=== PATIENT | male | born 1960 | race Caucasian/White ===

== ENCOUNTER → 2018-11-25 09:40 | Outpatient (CLI) | payer BC, SELFPAY ==
[2018-11-25 12:47] LABS: Anion Gap 7 (5-15); BUN 11 mg/dL (7-18); Calcium,Total 8.8 mg/dL (8.5-10.1); Chloride 106 mmol/L (98-107); Cholesterol 204 mg/dL (200); Creatinine, Serum 0.85 mg/dL (0.70-1.30); EST Glomerular Filtration Rate 98 mL/min (>60); Est Glom Filt Rate - Afr Amer 118 mL/min (>60); Glucose 92 mg/dL (74-106); High Density Lipoprotein 100 mg/dL; Potassium 4.3 mmol/L (3.5-5.1); Sodium Level 142 mmol/L (136-145); Triglycerides 100 mg/dL; Very Low Density Lipoprotein 20 mg/dL (5-40)
== END ==
PROVIDERS: Family Provider Family Medicine; PCP Family Medicine; Visit Provider Family Medicine
DX: I10 Essential (primary) hypertension (principal)
CPT/HCPCS: 36415; 80048; 80061

== ENCOUNTER 2018-12-22 15:59 | Emergency (ER) | payer BC, SELFPAY ==
[2018-12-22 16:00] VITALS: BP 163/104; PULSE 88; RESP 17; TEMP 36.6; O2SAT 99; BMI 25.4
--- NOTE | 2018-12-22 16:02 | ED.RN ---
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
--- NOTE | 2018-12-22 16:36 | CT_ITS ---
STUDY: CT BRAIN WITHOUT CONTRAST REASON FOR EXAM: Male, 58 years old. Fell on ice. No loss of consciousness. Neck pain. Head pain. RADIATION DOSAGE (If Supplied By Facility): CTDIvol = ( 44.99 ) mGy, DLP = ( 779.24 ) mGycm TECHNIQUE: Transaxial CT imaging of the brain was performed without administration of intravenous contrast material. Individualized dose optimization techniques were used for this CT. COMPARISON: None. FINDINGS: Normal soft tissue structures. Normal calvarium. Normal size ventricles and extra-axial spaces for the patient's age. Normal white matter tracts of the cerebral hemispheres. Normal basal ganglia and thalami. Normal brainstem. Normal cerebellum. There is no intracranial hemorrhage. There are no findings of an acute ischemic infarction. Normal visualized paranasal sinuses. CT/Brain/Head without Contrast IMPRESSION: Normal unenhanced CT scan of the brain. Electronically Signed: Mj Lawler DO at 17:24 EST Tel [phone], Service support ,
--- NOTE | 2018-12-22 16:36 | CT_ITS ---
STUDY: CT CERVICAL SPINE WITHOUT CONTRAST REASON FOR EXAM: Male, 58 years old. Fell on ice. Neck pain. No loss of consciousness. RADIATION DOSAGE (If Supplied By Facility): CTDIvol = ( 24.88 ) mGy, DLP = ( 520.45 ) mGycm TECHNIQUE: High resolution transaxial imaging was performed without contrast material. Sagittal and coronal images were reconstructed. Individualized dose optimization techniques were used for this CT. COMPARISON: None FINDINGS: Normal craniovertebral junction. There are degenerative changes of the anterior atlantoaxial articulation. Normal odontoid process. Normal cervical lordosis. Normal vertebral bodies and posterior osseous elements. C2-3: Normal endplates. Normal disc height and morphology. Normal central canal and intervertebral neuroforamina. C3-4: There is loss of disc height with minimal endplate spondylosis. There is facet and vertebral joint degenerative change. Normal central canal. There is mild narrowing on the right intervertebral neuroforamen. C4-5: There is minimal endplate spondylosis with loss of disc height. There is a Schmorl's node in the inferior endplate of C4. There is facet and uncovertebral joint degenerative change. Normal central canal and intervertebral neuroforamina. C5-6: There is loss of disc height with minimal endplate spondylosis. There is facet and uncovertebral joint degenerative change Normal central canal. There is narrowing of the right intervertebral neuroforamen. C6-7: Normal endplates. There is loss of disc height. There is facet and uncovertebral joint degenerative change. Normal central canal and intervertebral neuroforamina. C7-T1: Normal endplates. Normal disc height and morphology. Normal central canal and intervertebral neuroforamina. Normal visualized soft tissue structures. CT/Spine Cervical without Contras IMPRESSION: Degenerative changes in cervical spine, as above. There is no acute fracture or subluxation. Electronically Signed: Mj Lawler DO at 17:49 EST Tel [phone], Service support ,
--- NOTE | 2018-12-22 16:36 | RAD_ITS ---
STUDY: X-RAY - THORACIC SPINE REASON FOR EXAM: Male, 58 years old. Pain after fall. TECHNIQUE: 3 view(s) of the thoracic spine were obtained. COMPARISON: Lumbar spine, December 22, 2018. Cervical spine, December 22, 2018. FINDINGS: Normal kyphosis of the thoracic spine. There is a mild dextroscoliosis at the convexity at T6-7. There is multilevel endplate spondylosis of the thoracic vertebrae. There is multilevel disc space narrowing of the thoracic spine. This is most marked in the mid thoracic spine. There is no evidence of acute fracture or loss of vertebral axial height. The soft tissue structures are unremarkable. RAD/Thoracic Spine 3 Views IMPRESSION: Degenerative changes of the thoracic spine without fracture or subluxation. Electronically Signed: Mj Lawler DO at 17:37 EST Tel [phone], Service support ,
--- NOTE | 2018-12-22 16:39 | ED.DCSUM_ITS ---
- ER Visit Summary Date of Service: 12/22/18 Chief Complaint: Fall History of Present Illness: The patient is a 58 M who presents after a fall today. Patient states he slipped on ice and fell backwards onto his back. Patient states the pain is worse over the upper thoracic area. Patient states he did hit his head but denies any loss of consciousness. Patient also admits to some left paraspinal cervical tenderness. Patient denies any paresthesias or weakness. Patient states the pain is worse with any movement. Patient describes pain as sharp. Patient does admit to a mild headache. Physical Examination: Vital signs are stable. Patient is afebrile. Patient is in no acute distress. Muscular skeletal exam reveals tenderness over the upper thoracic spine and paraspinal muscles. There is also tenderness over the left cervical paraspinal muscles. There is also some mild occipital tenderness. There is no bony crepitance or step-off. Range of motion was limited all motions of the cervical spine and thoracic spine secondary to pain. Strength is 5/5 bilaterally in the upper and lower extremities. There are no sensory deficits noted. Cranial nerves II through XII are intact. Heart was regular rate and rhythm. Lungs are clear and equal bilaterally. The remaining physical exam is within normal limits. Test Results: CT scan of the brain was obtained and did not show any acute intracranial abnormality. CT scan of the cervical spine was obtained. There is no acute fracture or subluxation noted. X-rays of the thoracic and lumbar spine were obtained. There are no acute fractures or subluxation. Emergency Department Course and Treatment: Patient was advised that this is most likely muscular strain. Patient was given head injury instructions. Patient was instructed to use ice to the areas. Patient was given prescriptions for Naprosyn and Flexeril. Patient was instructed to follow-up with his primary care physician in 5-7 days. Patient understood and was agreeable with the plan. All questions were answered. Disposition: Discharge home Impression: 1. Acute thoracic strain 2. Acute cervical strain 3. Closed head injury This note was generated with [employer] dictation software. It may contain incorrect words, spelling, and punctuation that were not noted in review of the chart prior to signing ED Disposition - Plan for ED Patient: Disposition: Home or Assisted Living Chief Complaint: Fall Diagnosis: Closed head injury, Acute cervical myofascial strain, Acute thoracic myofascial strain Instructions: ED Mechanical Fall, ED Head Injury Closed, ED Neck Back Pain General Prescriptions: Cyclobenzaprine [Flexeril] 10 mg PO QHS PRN PRN #10 tab PRN Reason: Muscle Spasm Naproxen [Naprosyn] 500 mg PO BID PRN #20 tab Referrals: Ronaldo Choe MD [Primary Care Provider] -
[2018-12-22] MEDS: Morphine 4 MG/ML Syringe IM (16:47)
--- NOTE | 2018-12-22 17:00 | RAD_ITS ---
STUDY: X-RAY - LUMBAR SPINE REASON FOR EXAM: Male, 58 years old. Lower back pain after fall. TECHNIQUE: 3 view(s) of the lumbar spine were obtained. COMPARISON: None FINDINGS: Normal lumbar lordosis. There is no substantial scoliosis. There is a normal alignment of the vertebrae. There is multilevel endplate spondylosis of the lumbar vertebrae. There is multi-level degenerative disc disease with multi-level disc space narrowing. There is no evidence of acute fracture or loss of vertebral axial height. There is atherosclerotic calcification of the abdominal aorta without a demonstrated aneurysm. RAD/Lumbar Spine 2 or 3 Views IMPRESSION: Degenerative changes of the lumbar spine without evidence of fracture or subluxation. Electronically Signed: Mj Lawler DO at 17:36 EST Tel [phone], Service support ,
[2018-12-22 18:20] VITALS: BP 156/103; PULSE 69; RESP 16; O2SAT 100
[2018-12-22] MEDS: Naproxen 250 MG Tablet 500 MG PO (18:44)
--- OUTSIDE RECORDS SUMMARY | 2019-02-23 23:18 | XMS RPT_ITS ---
:1960 Author Organization [facility] Care Team Providers Name Role Phone Yon Choe Attending Unavailable Yon Choe Primary Care Unavailable Yon Choe Primary Care Unavailable Gerardo Chaudhary Unavailable PROBLEMS PROBLEMS No Problem Records FoundPROCEDURES PROCEDURES No Procedure Records FoundRESULTS RESULTS EMERGENCY DEPARTMENT Observed: 12/22/2018 Status: F Source: [place] SUMMARY 6:33 PM [facility] [place], [place] REPOSITORY [facility] Medical Records Department [address] [place] [address] Emergency Department Summary 12/22/18 1637 MR#: [id number] Acct: [id number] Name: GONSALO HA Rep #: [id number] : 1960 58 From: Gerardo Chaudhary DO PCP: Yon Choe MD Status: REG ER - ER Visit Summary Date of Service: 12/22/18 Chief Complaint: Fall History of Present Illness: The patient is a 58 M who presents after a fall today. Patient states he slipped on ice and fell backwards onto his back. Patient states the pain is worse over the upper thoracic area. Patient states he did hit his head but denies any loss of consciousness. Patient also admits to some left paraspinal cervical tenderness. Patient denies any paresthesias or weakness. Patient states the pain is worse with any movement. Patient describes pain as sharp. Patient does admit to a mild headache. Physical Examination: Vital signs are stable. Patient is afebrile. Patient is in no acute distress. Muscular skeletal exam reveals tenderness over the upper thoracic spine and paraspinal muscles. There is also tenderness over the left cervical paraspinal muscles. There is also some mild occipital tenderness. There is no bony crepitance or step-off. Range of motion was limited all motions of the cervical spine and thoracic spine secondary to pain. Strength is 5/5 bilaterally in the upper and lower extremities. There are no sensory deficits noted. Cranial nerves II through XII are intact. Heart was regular rate and rhythm. Lungs are clear and equal bilaterally. The remaining physical exam is within normal limits. Test Results: CT scan of the brain was obtained and did not show any acute intracranial abnormality. CT scan of the cervical spine was obtained. There is no acute fracture or subluxation noted. X-rays of the thoracic and lumbar spine were obtained. There are no acute fractures or subluxation. Emergency Department Course and Treatment: Patient was advised that this is most likely muscular strain. Patient was given head injury instructions. Patient was instructed to use ice to the areas. Patient was given prescriptions for Naprosyn and Flexeril. Patient was instructed to follow-up with his primary care physician in 5-7 days. Patient understood and was agreeable with the plan. All questions were answered. Disposition: Discharge home Impression: 1. Acute thoracic strain 2. Acute cervical strain 3. Closed head injury This note was generated with [employer] dictation software. It may contain incorrect words, spelling, and punctuation that were not noted in review of the chart prior to signing ED Disposition - Plan for ED Patient: Disposition: Home or Assisted Living Chief Complaint: Fall Diagnosis: Closed head injury, Acute cervical myofascial strain, Acute thoracic myofascial strain Instructions: ED Mechanical Fall, ED Head Injury Closed, ED Neck Back Pain General Prescriptions: Cyclobenzaprine [Flexeril] 10 mg PO QHS PRN PRN #10 tab PRN Reason: Muscle Spasm Naproxen [Naprosyn] 500 mg PO BID PRN #20 tab Referrals: Ronaldo Choe MD [Primary Care Provider] - What to do if you have Problems For any increased pain, shortness of breath, bleeding, nausea or vomiting, chest pain, or any unexpected problems, contact your Primary Care Provider. Call [facility] ([phone]) or report to the closest Emergency Room. Call 911 if necessary. 12/22/18 0339 <Electronically signed by Gerardo Chaudhary DO> Date Gerardo Grossman Signature (If Indicated): Date CC: Yon Choe MD BRAIN/HEAD WITHOUT Observed: 12/22/2018 Status: F Source: [place] CONTRAST 4:37 PM [facility] [place], [place] REPOSITORY [facility] Imaging Services [address] [place] [address] Brain/Head without Contrast MR#: [id number] Acct: [id number] Name: GONSALO HA Rep #: [id number] : 1960 M 58 From: Mj Lawler DO PCP: Yon Choe MD Status: REG ER Study: Brain/Head without Contrast Date of Exam: 12/22/18 Exam# [id number] Ordering Dr: Gerardo Chaudhary DO STUDY: CT BRAIN WITHOUT CONTRAST REASON FOR EXAM: Male, 58 years old. Fell on ice. No loss of consciousness. Neck pain. Head pain. RADIATION DOSAGE (If Supplied By Facility): CTDIvol = ( 44.99 ) mGy, DLP = ( 779.24 ) mGycm TECHNIQUE: Transaxial CT imaging of the brain was performed without administration of intravenous contrast material. Individualized dose optimization techniques were used for this CT. COMPARISON: None. FINDINGS: Normal soft tissue structures. Normal calvarium. Normal size ventricles and extra-axial spaces for the patient's age. Normal white matter tracts of the cerebral hemispheres. Normal basal ganglia and thalami. Normal brainstem. Normal cerebellum. There is no intracranial hemorrhage. There are no findings of an acute ischemic infarction. Normal visualized paranasal sinuses. CT/Brain/Head without Contrast IMPRESSION: Normal unenhanced CT scan of the brain. Electronically Signed: Mj Lawler DO at 17:24 EST Tel [phone], Service support , CC: Yon Choe MD; Gerardo Chaudhary DO Rod Cup Filler: Signed LUMBAR SPINE 2 OR 3 Observed: 12/22/2018 Status: F Source: [place] VIEWS 4:37 PM [facility] [place] [place] REPOSITORY [facility] Imaging Services [address] [place] [address] Lumbar Spine 2 or 3 Views MR#: [id number] Acct: [id number] Name: GONSALO HA Rep #: [id number] : 1960 M 58 From: Mj Lawler DO PCP: Yon Choe MD Status: REG ER Study: Lumbar Spine 2 or 3 Views Date of Exam: 12/22/18 Exam# [id number] Ordering Dr: Gerardo Chaudhary DO STUDY: X-RAY - LUMBAR SPINE REASON FOR EXAM: Male, 58 years old. Lower back pain after fall. TECHNIQUE: 3 view(s) of the lumbar spine were obtained. COMPARISON: None FINDINGS: Normal lumbar lordosis. There is no substantial scoliosis. There is a normal alignment of the vertebrae. There is multilevel endplate spondylosis of the lumbar vertebrae. There is multi-level degenerative disc disease with multi-level disc space narrowing. There is no evidence of acute fracture or loss of vertebral axial height. There is atherosclerotic calcification of the abdominal aorta without a demonstrated aneurysm. RAD/Lumbar Spine 2 or 3 Views IMPRESSION: Degenerative changes of the lumbar spine without evidence of fracture or subluxation. Electronically Signed: Mj Lawler DO at 17:36 EST Tel [phone], Service support , CC: Yon Choe MD; Gerardo Chaudhary DO Rod Cup Filler: Signed THORACIC SPINE 3 Observed: 12/22/2018 Status: F Source: [place] VIEWS 4:37 PM [facility] REPOSITORY [facility] Imaging Services [address] [place] [address] Thoracic Spine 3 Views MR#: [id number] Acct: [id number] Name: GONSALO HA Rep #: [id number] : 1960 M 58 From: Mj Lawler DO PCP: Yon Choe MD Status: REG ER Study: Thoracic Spine 3 Views Date of Exam: 12/22/18 Exam# [id number] Ordering Dr: Gerardo Chaudhary DO STUDY: X-RAY - THORACIC SPINE REASON FOR EXAM: Male, 58 years old. Pain after fall. TECHNIQUE: 3 view(s) of the thoracic spine were obtained. COMPARISON: Lumbar spine, December 22, 2018. Cervical spine, December 22, 2018. FINDINGS: Normal kyphosis of the thoracic spine. There is a mild dextroscoliosis at the convexity at T6-7. There is multilevel endplate spondylosis of the thoracic vertebrae. There is multilevel disc space narrowing of the thoracic spine. This is most marked in the mid thoracic spine. There is no evidence of acute fracture or loss of vertebral axial height. The soft tissue structures are unremarkable. RAD/Thoracic Spine 3 Views IMPRESSION: Degenerative changes of the thoracic spine without fracture or subluxation. Electronically Signed: Mj Lawler DO at 17:37 EST Tel [phone], Service support , CC: Yon Choe MD; Gerardo Chaudhary DO Rod Cup Filler: Signed SPINE CERVICAL Observed: 12/22/2018 Status: F Source: [place] WITHOUT CONTRAS 4:37 PM [facility] REPOSITORY [facility] Imaging Services [address] [place] [address] Spine Cervical without Contras MR#: [id number] Acct: [id number] Name: GONSALO HA Rep #: [id number] : 1960 M 58 From: Mj Lawler DO PCP: Yon Choe MD Status: REG ER Study: Spine Cervical without Contras Date of Exam: 12/22/18 Exam# [id number] Ordering Dr: Gerardo Chaudhary DO STUDY: CT CERVICAL SPINE WITHOUT CONTRAST REASON FOR EXAM: Male, 58 years old. Fell on ice. Neck pain. No loss of consciousness. RADIATION DOSAGE (If Supplied By Facility): CTDIvol = ( 24.88 ) mGy, DLP = ( 520.45 ) mGycm TECHNIQUE: High resolution transaxial imaging was performed without contrast material. Sagittal and coronal images were reconstructed. Individualized dose optimization techniques were used for this CT. COMPARISON: None FINDINGS: Normal craniovertebral junction. There are degenerative changes of the anterior atlantoaxial articulation. Normal odontoid process. Normal cervical lordosis. Normal vertebral bodies and posterior osseous elements. C2-3: Normal endplates. Normal disc height and morphology. Normal central canal and intervertebral neuroforamina. C3-4: There is loss of disc height with minimal endplate spondylosis. There is facet and vertebral joint degenerative change. Normal central canal. There is mild narrowing on the right intervertebral neuroforamen. C4-5: There is minimal endplate spondylosis with loss of disc height. There is a Schmorl's node in the inferior endplate of C4. There is facet and uncovertebral joint degenerative change. Normal central canal and intervertebral neuroforamina. C5-6: There is loss of disc height with minimal endplate spondylosis. There is facet and uncovertebral joint degenerative change Normal central canal. There is narrowing of the right intervertebral neuroforamen. C6-7: Normal endplates. There is loss of disc height. There is facet and uncovertebral joint degenerative change. Normal central canal and intervertebral neuroforamina. C7-T1: Normal endplates. Normal disc height and morphology. Normal central canal and intervertebral neuroforamina. Normal visualized soft tissue structures. CT/Spine Cervical without Contras IMPRESSION: Degenerative changes in cervical spine, as above. There is no acute fracture or subluxation. Electronically Signed: Mj Lawler DO at 17:49 EST Tel [phone], Service support , CC: Yon Choe MD; Gerardo Chaudhayr DO Rod Cup Filler: Signed BASIC METABOLIC Collected: 11/25/2018 Status: F Source: [place] PROFILE (BMP) 9:40 AM [facility] [place], [place] REPOSITORY TYPE CODE TESTS RESULT OUT OF RANGE REFERENCE UNITS LAB L501.0100 74-106 mg/dL Normal GLU 92 Result Comment: Please note revised GLUCOSE reference range effective 2018. LAB L501.1000 7-18 mg/dL Normal BUN 11 LAB L501.1100 0.70-1.30 mg/dL Normal CREAT,SERUM 0.85 Result Comment: The validity of the calculated GFR AND GFRAA in patients over 70 years has not been determined. Clinical correlation is essential. LAB L501.1110 >60 mL/min Normal EST GFR 98 Result Comment: Non- GFR Calc LAB L501.1115 >60 mL/min Normal EST GFR - AA 118 Result Comment: GFR Calc LAB L501.1300 10-20 RATIO Normal BUN/CRE 13.0 LAB L501.2200 8.5-10.1 mg/dL CA Normal 8.8 LAB L501.5300 136-145 mmol/L NA Normal 142 LAB L501.5600 3.5-5.1 mmol/L K Normal 4.3 LAB L501.5900 98-107 mmol/L CL Normal 106 LAB L501.6100 21.0-32.0 mmol/L Normal CO2 29.0 LAB L501.6200 5-15 Normal GAP 7 Performed By: #### L500.2500, L500.4100 #### [facility] [address] [place], [address] LIPID PROFILE Collected: 11/25/2018 Status: F Source: [place] 9:40 AM [facility] [place] [place] REPOSITORY TYPE CODE TESTS RESULT OUT OF RANGE REFERENCE UNITS LAB L501.4900 200 mg/dL High CHOL 204 Result Comment: <200 mg/dL Desirable 200-240 mg/dL Borderline >240 mg/dL High Risk LAB L501.5000 mg/dL Normal TRIG 100 Result Comment: The drugs N-Acetylcysteine and Metamizole may falsely depress this assay. Serum Triglycerides Reference Interval Normal <150 mg/dL Borderline high 150 - 199 mg/dL High 200 - 499 mg/dL Very High > or = 500 mg/dL LAB L501.6400 mg/dL Normal HDL 100 Result Comment: The drugs N-Acetylcysteine and Metamizole may falsely depress this assay. Reference Range HDL <40 mg/dL Low HDL Cholesterol HDL >or= 60 mg/dL High HDL Cholesterol LAB L501.6500 0-130 mg/dL Normal LDL 84 LAB L501.6600 5-40 mg/dL Normal VLDL 20 Performed By: #### L500.2500, L500.4100 #### [facility] [address] [place], [address] ALLERGIES ALLERGIES DATE TYPE / CODE NAME / CODE REACTION SEVERITY SOURCE 12/22/2018 Drug No Known Unknown [facility] Allergy/4160 Allergies/F00 Hospital 77378(SNOMED [id number](RXNOR Repository CT) M) ENCOUNTERS ENCOUNTERS ADMIT/DISCHARGE ACCOUNT ADMITTING ENCOUNTER LOCATION SOURCE NUMBER CLASS 12/22/2018/ [id number] Emergency [place] 9 5 [facility] ing:ED Repository 11/25/2018 [id number] Ambulatory [place] 0 [facility] ing:MFPLAB Repository PAYERS PAYERS ENCOUNTER GUARANTOR PAYER SUBSCRIBER SOURCE 12/22/2018 GONSALO [id number] Insurance:ANTHEMPolic CURIEDOB: [facility] y [place]: [id number] [id number] Repository [address]Leu: (330) Date:[id number] [phone] () [place], [place] [address]LB: 12/22/2018 Secondary NOT GIVENUNK [place] Insurance:SELF PAY [facility] Number: Effective Repository Date:2018-12-22 11/25/2018 GONSALO Primary Michelle Hogan [place] [id number] Insurance:ANTHEMPolic CurieDOB: [facility] y [place]: [id number] [id number] Repository [address]Wqo: 330) Date:[phone] () [place], [place] [address]IU: 11/25/2018 Secondary NOT GIVENKARLENE [place] Insurance:SELF PAY [facility] Number: Effective Repository Date:2018-11-25
== END 2018-12-22 18:54 | disposition home or self-care (01) ==
PROVIDERS: Emergency Provider Emergency Medicine; Family Provider Family Medicine; PCP Family Medicine
DX: S29.012A Strain of muscle and tendon of back wall of thorax, initial encounter (principal); S16.1XXA Strain of muscle, fascia and tendon at neck level, initial encounter; W00.0XXA Fall on same level due to ice and snow, initial encounter; Y93.9 Activity, unspecified; Y92.9 Unspecified place or not applicable; Y99.9 Unspecified external cause status; I10 Essential (primary) hypertension; F10.20 Alcohol dependence, uncomplicated; Y90.9 Presence of alcohol in blood, level not specified; S09.90XA Unspecified injury of head, initial encounter
CPT/HCPCS: 70450; 72072; 72100; 72125; 99283; J7030; A4216

== ENCOUNTER → 2019-06-11 14:59 | Outpatient (CLI) | payer BC, SELFPAY ==
[2019-06-11 15:36] LABS: Pathologist Comment May follow
[2019-06-11 18:18] LABS: RBC /Synovial Fluid 0.013 10^6/uL (0); Synovial Fld Mononuclear WBC % 9.5 %; Synovial Fld Polynuclear WBC % 90.5 %
[2019-06-11 19:09] LABS: AUTO B FLUID DILUENT BKGD CT WBC <0.1 RBC <0.01 (W<.1,R<.01); Source- Body Fluid SYNOVIAL
[2019-06-11 19:10] LABS: Appearance /Synovial Fluid Cloudy (CLEAR); Color / Synovial Fluid Yellow (Pale Yellow); Source / Synovial Fluid NG
[2019-06-11 19:12] LABS: Monocyte /Synovial Fluid 4 %; Neutrophil 93 % (0-25)
[2019-06-11 19:13] LABS: Body Fluid QC Type(s) BF3Q,BF4Q; Other Cell /Synovial Fluid 3 %
[2019-06-14 14:25] LABS: Pathologist Review Reviewed
== END ==
PROVIDERS: Family Provider Family Medicine; PCP Family Medicine; Referring Provider Orthopaedic Surgery; Visit Provider Orthopaedic Surgery
DX: M70.42 Prepatellar bursitis, left knee (principal)
CPT/HCPCS: 87070; 87075; 87077; 87186; 87205; 89050; 89051; 89060

== ENCOUNTER → 2019-11-29 11:41 | Outpatient (CLI) | payer BC, SELFPAY ==
[2019-11-29 14:44] LABS: Anion Gap 5 (5-15); BUN 18 mg/dL (7-18); BUN/Creat Ratio 23.2 RATIO (10-20); Calcium,Total 8.5 mg/dL (8.5-10.1); Chloride 105 mmol/L (98-107); Creatinine, Serum 0.78 mg/dL (0.70-1.30); EST Glomerular Filtration Rate 108 mL/min (>60); Est Glom Filt Rate - Afr Amer 130 mL/min (>60); Glucose 98 mg/dL (74-106); PSA,Total - Annual Screen 0.89 ng/mL (0.00-4.00); Sodium Level 137 mmol/L (136-145)
== END ==
PROVIDERS: Family Provider Family Medicine; PCP Family Medicine; Visit Provider Family Medicine
DX: I10 Essential (primary) hypertension (principal); Z12.5 Encounter for screening for malignant neoplasm of prostate
CPT/HCPCS: 36415; 80048; 84153; G0103

== ENCOUNTER → 2020-11-30 10:31 | Outpatient (CLI) | payer BC, SELFPAY ==
[2020-11-30 12:22] LABS: Hematocrit 42.7 % (40-54); Hemoglobin 14.6 g/dL (13.0-16.5); Mean Corp Hgb Conc 34.2 g/dL (32-36); Mean Corpuscular Hgb 32.2 pg (27.0-32.0); Mean Corpuscular Volume 94.3 fL (80-94); Mean Platelet Vol. 11.1 fl (6.2-12.0); Platelet Count 215 K/mm3 (150-450); RBC Distribution Width CV 12.3 % (11.6-14.6); RBC Distribution Width SD 42.7 fl (35.1-43.9); Red Blood Count 4.53 M/mm3 (4.6-6.2); White Blood Count 4.2 K/mm3 (4.4-11.0)
[2020-11-30 12:42] LABS: Vitamin B12 451 pg/mL (211-911); Vitamin D,25 Hydroxy 13.2 ng/mL
[2020-11-30 12:44] LABS: Anion Gap 1 (5-15); BUN 16 mg/dL (7-18); BUN/Creat Ratio 19.5 RATIO (10-20); Chloride 108 mmol/L (98-107); Cholesterol 220 mg/dL (200); Creatinine, Serum 0.82 mg/dL (0.70-1.30); EST Glomerular Filtration Rate 101 mL/min (>60); Est Glom Filt Rate - Afr Amer 122 mL/min (>60); Glucose 97 mg/dL (74-106); High Density Lipoprotein 122 mg/dL; PSA,Total - Annual Screen 0.98 ng/mL (0.00-4.00); Potassium 4.3 mmol/L (3.5-5.1); Sodium Level 139 mmol/L (136-145); Thyroid Stim Hormone (TSH) 1.55 uIU/mL (0.358-3.74); Triglycerides 45 mg/dL; Very Low Density Lipoprotein 9 mg/dL (5-40)
== END ==
PROVIDERS: PCP Family Medicine; Visit Provider Family Medicine
DX: I10 Essential (primary) hypertension (principal); R53.83 Other fatigue; Z12.5 Encounter for screening for malignant neoplasm of prostate
CPT/HCPCS: 36415; 80048; 80061; 82306; 82607; 84153; 84403; 84443; 85027; G0103

== ENCOUNTER → 2021-03-06 09:12 | Outpatient (CLI) | payer BC, SELFPAY | PROVIDERS: PCP Family Medicine; Visit Provider Family Medicine | DX: E55.9 Vitamin D deficiency, unspecified (principal) | CPT/HCPCS: 36415; 82306 ==

== ENCOUNTER 2021-12-05 11:32 | Outpatient (CLI) | payer BC, SELFPAY ==
[2021-12-05 16:48] LABS: Anion Gap 5 (5-15); BUN 18 mg/dL (7-18); BUN/Creat Ratio 24.3 RATIO (10-20); Calcium,Total 9.2 mg/dL (8.5-10.1); Chloride 105 mmol/L (98-107); Creatinine, Serum 0.74 mg/dL (0.70-1.30); EST Glomerular Filtration Rate 113 mL/min (>60); Est Glom Filt Rate - Afr Amer 137 mL/min (>60); Glucose 81 mg/dL (74-106); PSA,Total - Annual Screen 0.88 ng/mL (0.00-4.00); Potassium 4.6 mmol/L (3.5-5.1); Sodium Level 139 mmol/L (136-145)
== END 2021-12-05 23:59 | disposition home or self-care (01) ==
PROVIDERS: PCP Family Medicine; Referring Provider Family Medicine; Visit Provider Family Medicine
DX: I10 Essential (primary) hypertension (principal); Z12.5 Encounter for screening for malignant neoplasm of prostate
CPT/HCPCS: 36415; 80048; 84153; G0103

== ENCOUNTER → 2022-08-09 | Outpatient (CLI) | payer BC, SELFPAY ==
--- NOTE | 2022-08-09 13:59 | RAD_ITS ---
INDICATION: PAIN EXAMINATION/TECHNIQUE: X-RAY - RIGHT XR Elbow Min 3 Views COMPARISON: None. FINDINGS: SOFT TISSUES: Diffuse cerebral edema. Large elbow effusion. No radiopaque foreign body. BONES/JOINTS: Bilateral epicondyle osseous proliferation. No acute fracture or subluxation. Normal alignment. Preservation of the joint space. No sclerotic or destructive changes observed. RAD/Elbow min 3 Views IMPRESSION: Large joint effusion without visible fracture or acute osseous finding. Exclude clinical infection. Fluid sampling may be beneficial if clinically ambiguous. MRI could better assess for inflammatory or other osteoarthropathy or occult osseous injury as clinically indicated. Electronically Signed: Boris Dinero MD at 0:13 EDT ,
== END | disposition home or self-care (01) ==
LOC: MTRAD 13:57
PROVIDERS: PCP Family Medicine; Referring Provider Family Medicine; Visit Provider Family Medicine
DX: M25.521 Pain in right elbow (principal)
CPT/HCPCS: 73080

== ENCOUNTER → 2022-12-09 | Outpatient (CLI) | payer BC, SELFPAY ==
[2022-12-09 12:56] LABS: Vitamin D,25 Hydroxy 24.6 ng/mL
[2022-12-09 13:02] LABS: Anion Gap 8 (5-15); BUN 15 mg/dL (7-18); BUN/Creat Ratio 20.2 RATIO (10-20); Calcium,Total 8.9 mg/dL (8.5-10.1); Chloride 105 mmol/L (98-107); Cholesterol 194 mg/dL (200); Creatinine, Serum 0.74 mg/dL (0.70-1.30); EST Glomerular Filtration Rate 113 mL/min (>60); Est Glom Filt Rate - Afr Amer 136 mL/min (>60); Glucose 87 mg/dL (74-106); High Density Lipoprotein 96 mg/dL; Potassium 4.5 mmol/L (3.5-5.1); Sodium Level 140 mmol/L (136-145); Triglycerides 67 mg/dL; Very Low Density Lipoprotein 13 mg/dL (5-40)
== END | disposition home or self-care (01) ==
LOC: MFPLAB 11:07
PROVIDERS: PCP Family Medicine; Visit Provider Family Medicine
DX: I10 Essential (primary) hypertension (principal); E55.9 Vitamin D deficiency, unspecified; Z12.5 Encounter for screening for malignant neoplasm of prostate
CPT/HCPCS: 36415; 80048; 80061; 82306; 84153; G0103

== ENCOUNTER → 2023-12-12 | Outpatient (CLI) | payer MEDICARE, SELFPAY ==
[2023-12-12 10:31] LABS: Vitamin D,25 Hydroxy 39.3 ng/mL
[2023-12-12 10:52] LABS: Anion Gap 5 (5-15); BUN 17 mg/dL (7-18); Calcium,Total 9.3 mg/dL (8.5-10.1); Chloride 108 mmol/L (98-107); Cholesterol 185 mg/dL (200); Creatinine, Serum 0.77 mg/dL (0.70-1.30); EST Glomerular Filtration Rate 107 mL/min (>60); Est Glom Filt Rate - Afr Amer 130 mL/min (>60); Glucose 75 mg/dL (74-106); High Density Lipoprotein 97 mg/dL; PSA,Total - Annual Screen 1.03 ng/mL (0.00-4.00); Potassium 4.2 mmol/L (3.5-5.1); Sodium Level 140 mmol/L (136-145); Triglycerides 42 mg/dL; Very Low Density Lipoprotein 8 mg/dL (5-40)
== END | disposition home or self-care (01) ==
PROVIDERS: PCP Family Medicine; Visit Provider Family Medicine
DX: Z12.5 Encounter for screening for malignant neoplasm of prostate (principal); I10 Essential (primary) hypertension; E55.9 Vitamin D deficiency, unspecified
CPT/HCPCS: 36415; 80048; 80061; 82306; 84153; G0103

== ENCOUNTER 2024-03-05 07:30 | Outpatient (RCR) | payer MEDICARE, SELFPAY ==
--- NOTE | 2024-02-12 14:45 | HP.PTEVAL_ITS ---
Patient's Visit Information Visit Information Visit Information: GONSALO HA is a 63 year old M referred to Physical Therapy by Dr. 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 Date of Evaluation: 02/12/24 Physical Therapist: Bambi Salgado, PT, Cert MDT Visit Plan Frequency: 2-3x /Week Duration: 4-6 Weeks Plan: US AT 1.3 W/CM2 X 8 MIN TO HORACIO POSTERIOR CERVICAL REGIONS IN SITTING X 6. POSTURE TRAINING. INSTRUCTION IN APPROPRIATE ACTIVITY MODIFICATIONS TO DECREASE INFLAMMATION. SCAPULAR STRENGTHENING. CERVICAL ROM/STRETCHING AND MOBILIZATION. HEP. Subjective Subjective: Work/Leisure: [employer] X 35 YEARS = SELF EMPLOYEED Present symptoms: NECK PAIN. INTERMITTENT HORACIO HAND TINGLING. HORACIO ARM PAIN AND NUMBNESS. HEADACHES Present since: YEARS Pain Scale: Worst - 7/10 Least - 2/10 Currently: 3/10 Getting Better, Getting Worse, Staying the Same: Getting Worse. Commenced as a result of: NO APPARENT REASON Symptoms at onset: NECK PAIN Worse: WORKING WITH HANDS ABOVE SHOULDERS, DOWN ON KNEES BENT OVER PUTTING FLOOR IN, TURNING HEAD TOO FAR EITHER WAY, READING THE NEWS ON PHONE - LOOKING DOWN - TENDS TO CAUSE HEADACHES IN ADDITION TO NECK PAIN AND SOMETIMES THE ARM SXS'. Better: IBUPROFEN, LOUNGE CHAIR, CBD CREAM, ICY HOT Disturbed sleep: YES Previous history/Previous treatment: CHIROPRACTIC FOR YEARS. LAST VISIT WAS FRIDAY. CHIROPRACTOR IS PATIENTS NEPHEW. TEMPORARY RELIEF ONLY. NO NECK SX. NO INJECTIONS. NO PT. NO PRESCRIPTION MEDICATION. TRIED NECK TX WITH CERVICAL COLLAR ABOUT 2018 WITH TEMP. RELIEF This episode: PT CONSULT. Dizziness: INTERMITTENT Tinnitus: OCCASSIONALLY Nausea: NO Shortness of Breath: NO Difficulty Swollowing: NO Gait: NO. WALKING 5 MILES A DAY Accidents: FALL ON BLACK ICE 2 YEARS AGO - HIT HEAD FIRST - NO PHYSICIAN FOLLOW UP - WAS HAVING THESE PROBLEMS PRIOR. Unexplained weight loss: NO Imaging: RECENT NECK X-RAYS SHOWING DETERIATION OF DISCS 3-6 PER PATIENT REPORT. MRI ORDERED BY [facility]IRO ABOUT 2018. PMH/Recent major surgery: HTN Objective Objective: Sitting Posture/Standing Posture: FORWARD HEAD. ROUNDED SHLD'S. INCREASED KYPHOSIS. Active Correction of posture: INCREASES PAIN. ABLE TO PARTIALLY CORRECT. DOES NOT MAINTAIN. Other Observations: INDEP GAIT AND TRANSFERS. 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 Reflexes: HORACIO UE DTR'S 2/3. Dural Signs: POSITIVE R UE Cervical Mvmt Loss: Flex: NIL - INCREASES - NW Pro: NIL - INCREASES - NW Ext: MOD - INCREASES - NW Ret: MOD - INCREASES - NW RSB: MIN - INCREASES - NW LSB: MOD - INCREASES - NW R Rot: MIN - INCREASES AND P WHALEN - W L Rot: MIN - INCREASES - NW Postural strength: FAIR Palpation: L MEDIAL SCAP CYST OF SOME SORT THAT PATIENT REPORTS DR. MARIE HAS TREATED. PATIENT HAS INCREASED MUSCLE TONE HORACIO SCAP, TRAP AND CERICAL MUSCULATURE BUT NOT TENDER. MILD MID CERVICAL SPINE TENDERNESS. Balance/Special Test Scores Oswestry Neck Score: 12 Goals Goal 1:: DECREASE C/O HEAD, NECK AND HORACIO UE SX'S BY AT LEAST 25% TO EASE ADL AND SLEEP FUNCTION. Goal Time Frame: 4-6 Weeks Goal 2:: INCREASE PAINFREE CERVICAL AND UE ROM TO EASE ADL'S Goal Time Frame: 4-6 Weeks Goal 3:: INCREASE FUNCTIONAL STRENGTH OF UE'S TO IMPROVE ADL FUNCTION Goal Time Frame: 4-6 Weeks Goal 4:: PATIENT WILL DEMO IMPROVED POSTURE CONTROL Goal Time Frame: 4-6 Weeks Goal 5:: INDEP HEP Goal Time Frame: 4-6 Weeks Rehabilitation Potential Physical Therapy Diagnosis: THIS PATIENT PRESENTS TO PT WITH C/O HEAD, NECK AND HORACIO UE SYMPTOMS THAT ARE CHRONIC, WORSENING AND LIMITING HIS FUNCTION. HE HAS NECK STIFFNESS, SHLD STIFFNESS R>LEFT, UE WEAKNESS AND POSTURAL WEAKNESS. Rehabilitation Potential: Fair Anticipated Interventions Patient/Client Instruction: Educate patient on: Condition, Plan of Care and Risk Factors For the Purpose of:: To improve self management Therapeutic Exercise to Include: Strength training, Body mechanics, Postural training, Flexibilty training, Neuromotor development, Passive ROM, Active ROM and Scapular Strength/Stabilization For the Purpose of:: To decrease pain, To decrease swelling/inflammation, To increase ROM, To improve muscle performance and motor function, To increase tolerance to activity/condition/position, To improve ability of physical actions for home/community/work/leisure and To increase flexibility/ROM Manual Therapy Techniques to Include: Trigger point massage, Mobilization and Soft tissue mobilization For the Purpose of:: To decrease pain, To increase ROM and To improve nutrient delivery to tissue Cryotherapy (ice pack, ice massage): Yes Thermo therapy (hot pack): Yes Ultrasound (thermal/non thermal): Yes For the Purpose of:: To decrease pain, To decrease swelling/inflammation and To improve nutrient delivery to tissue Text: Thank you for the opportunity to evaluate your patient. For Medicare and Medicare HMO plans, please review the plan of care and approve it. It will need to be FAXED BACK to us at [phone] for Medicare purposes. For Medicare only, by signing this I certify the plan of care. Please let me know if there are questions or concerns regarding this plan of care. Physician Signature: ___Date:
--- NOTE | 2024-03-05 09:16 | HP.PTDCSUM_ITS ---
Discharge Summary D/C summary: It has been my pleasure to treat GONSALO HA referred by Dr. Ronaldo Choe MD, with the diagnosis of CERVICAL DDD C3-6 for a total of 9 visit(s). Discharge Date: 03/05/24 Please see the following information for a summary of their discharge status. Subjective Subjective: IF I WOULD GO HOME AND DO THE EX'S AND NOT DO ANY WORK I WOULD BE FINE BUT IF I DO ANY WORK I'M NOT. PATIENT REPORTS HE THINKS HE CAN LIVE WITH IT THE WAY IT IS NOW AND HE HAS DECIDED HE WOULD SEE IF THERE WAS ANYTHING THAT COULD BE DONE AND IF NOT HE WOULD JUST LIVE WITH IT AND MODIFY HIS ACTIVITIES ACCORDINGLY. PATIENT REPORTS HE HAS SOME TOOLS NOW WITH THE EX'S, POSTURE SUGGESTIONS AND WORK MODIFICATIONS TO MANAGE SOME BETTER NOW. STILL HAVING WHALEN'S. NOT SURE OF TRIGGERS - JUST WENT FOR A WALK YESTERDAY AND CAME HOME WITH A HEADACHE. Pain NECK: Pain Intensity (Out of 10): 3 R UE: Pain Intensity (Out of 10): 0 L UE: Pain Intensity (Out of 10): 0 WHALEN: Pain Intensity (Out of 10): 0 SHLD BLADES: Pain Intensity (Out of 10): 2 Overall Improvement % Improvement: 5 Objective Objective/Function: PATIENT WAS SEEN TODAY FOR RE-ASSESSMENT OF PROGRESS TOWARD THE SET PT GOALS AND THE NEED FOR FURTHER PHYSICAL THERAPY VS READINESS FOR DISCHARGE. PATIENT IS NOT IMPROVING AND IS APPROPRIATE FOR PHYSICIAN RE-ASSESSMENT. PATIENT IS AGREEABLE. UPON EXAM TODAY: Sitting Posture/Standing Posture: FORWARD HEAD. ROUNDED SHLD'S. INCREASED KYPHOSIS. Active Correction of posture: NE. ABLE TO PARTIALLY CORRECT. DOES NOT MAINTAIN. Other Observations: INDEP GAIT AND TRANSFERS. 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 Reflexes: UNABLE TO ELICIT HOARCIO UE DTR'S TODAY. BUT HORACIO UE LIGHT SENSATION GROSSLY INTACT AND SYMMETRICAL AND NO C/O UE SX'S TODAY. Dural Signs: NEGATIVE HORACIO UE'S. Cervical Mvmt Loss: Flex: NIL - INCREASES - NW Pro: NIL - INCREASES - NW Ext: MIN - INCREASES - NW Ret: MOD - INCREASES AND PRODUCES HORACIO SHLD P - W. RSB: MOD - INCREASES - NW LSB: MOD - INCREASES - NW R Rot: MIN - INCREASES - W (DOES NOT P WHALEN THIS TIME BUT REPORTS STILL DOES SOMETIMES). L Rot: MIN - INCREASES - NW Postural strength: FAIR Goals Goal 1:: DECREASE C/O HEAD, NECK AND HORACIO UE SX'S BY AT LEAST 25% TO EASE ADL AND SLEEP FUNCTION. Goal Progress: Not Progressing Goal 2:: INCREASE PAINFREE CERVICAL AND UE ROM TO EASE ADL'S Goal Progress: Not Progressing Goal 3:: INCREASE FUNCTIONAL STRENGTH OF UE'S TO IMPROVE ADL FUNCTION Goal Progress: Not Progressing Goal 4:: PATIENT WILL DEMO IMPROVED POSTURE CONTROL Goal Progress: Not Progressing Goal 5:: INDEP HEP Goal Progress: Not Progressing Plan Plan: D/C D/C Information d/c sentence: If there are questions or concerns regarding this patient's physical therapy, please feel free to call me at [phone]. Thank you for the referral of this patient. Sincerely, Bambi Salgado, PT, Cert MDT Balance/Gait/Functional tests Balance/Special Test Scores Oswestry Neck Score: 14 Improvement % Improvement: 5
== END 2024-03-05 19:00 | disposition home or self-care (01) ==
LOC: PT 07:30
PROVIDERS: PCP Family Medicine; Referring Provider Family Medicine; Visit Provider Family Medicine
DX: M50.30 Other cervical disc degeneration, unspecified cervical region (principal); R20.2 Paresthesia of skin
CPT/HCPCS: 97035; 97110; 97140; 97162; 97530

== ENCOUNTER → 2024-04-07 | Outpatient (CLI) | payer MEDICARE, SELFPAY ==
--- NOTE | 2024-04-07 07:41 | AAAS_ITS ---
Reason For Study: Screening Aorta Measurements Aorta Doppler Measurements Proximal aorta measures2.55 x 2.52cm. in Peak systolic flow velocities within the proximal longitudinal axis. aorta measure 57.8 cm/sec. Proximal aorta measures2.66cm. in cross-sectional Peak systolic flow velocities within the mid aorta axis. measure 72.3 cm/sec. Mid aorta measures1.89 x 1.84cm. in cross- Peak systolic flow velocities within the distal sectional axis. aorta measure 85.0 cm/sec. Mid aorta measures1.85cm. in longitudinal axis. Distal aorta measures1.50 x 1.47cm. in cross- sectional axis. Distal aorta measures1.56cm. in longitudinal axis. Left Iliac Artery Left iliac artery measures 1.05 x 1.06 cm. in the cross-sectional axis. Left iliac artery measures 1.05 cm. in the longitudinal axis. Peak systolic velocity in the left iliac artery measures 74.1 cm/sec. Right Iliac Artery Right iliac artery measures 1.10 x 1.10 cm. in the cross-sectional axis. Right iliac artery measures 1.09 cm. in the longitudinal axis. Peak systolic velocity in the right iliac artery measures 94.1 cm/sec. Procedure Aorta IVC Iliac vasculature or bypass grafts [id number]. The exam was diagnostic. Exam performed in department. 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 Bilateral iliac arteries patent, normal caliber Ordering Physician: Yon Choe Referring Physician: Yon Choe Performed By: Jose Tobias RVT
== END | disposition home or self-care (01) ==
LOC: CVS 07:41
PROVIDERS: PCP Family Medicine; Referring Provider Family Medicine; Visit Provider Family Medicine
DX: Z00.00 Encounter for general adult medical examination without abnormal findings (principal)
CPT/HCPCS: 76706

== ENCOUNTER → 2024-12-13 | Outpatient (CLI) | payer MEDICARE, SELFPAY ==
[2024-12-13 10:56] LABS: Anion Gap 3 (5-15); BUN 18 mg/dL (7-18); BUN/Creat Ratio 24.6 RATIO (10-20); Chloride 107 mmol/L (98-107); Cholesterol 182 mg/dL (200); Creatinine, Serum 0.73 mg/dL (0.70-1.30); EST Glomerular Filtration Rate 114 mL/min (>60); Est Glom Filt Rate - Afr Amer 137 mL/min (>60); Glucose 99 mg/dL (74-106); High Density Lipoprotein 113 mg/dL; PSA,Total - Annual Screen 0.94 ng/mL (0.00-4.00); Potassium 4.4 mmol/L (3.5-5.1); Sodium Level 138 mmol/L (136-145); Triglycerides 51 mg/dL; Very Low Density Lipoprotein 10 mg/dL (5-40)
[2024-12-13 15:01] LABS: Hepatitis C Antibody Non-Reactive (Nonreactive); Vitamin D,25 Hydroxy 31.6 ng/mL
== END | disposition home or self-care (01) ==
LOC: MFPLAB 09:05
PROVIDERS: PCP Family Medicine; Referring Provider Family Medicine; Visit Provider Family Medicine
DX: Z12.5 Encounter for screening for malignant neoplasm of prostate (principal); E55.9 Vitamin D deficiency, unspecified; I10 Essential (primary) hypertension